=== PATIENT | male | born 1995 | race Native Hawaiian/Other Pacific Islander ===

== ENCOUNTER 2024-06-30 15:47 | Emergency (ER) | payer OTHER ==
[2024-06-30 15:54] VITALS: BP 120/74; O2SAT 99
--- NOTE | 2024-06-30 16:58 | ED Physician Documentation ---
History of Present Illness - Stated complaint Stated Complaint: MOUTH PAIN - Chief complaint Chief Complaint: General - History obtained from History obtained from: Patient - Additonal information Additional information: Patient is a 28-year-old male presenting to the emergency department with superior and inferior dry lips. He notes symptoms have been going on for multiple weeks. He notes occasional having weeping from the dryness of his lips. He notes no new climate changes no recent travel. He has tried Blistex on his lips with no significant relief. He has been taking antihistamine as he occasionally has pruritus to his lips. He denies any swelling no lesions associated with it no crusting or irritation of his ponce no appreciable vesicles.No fevers or chills. Patient notes this started slowly but has progressively worsened.He has not seen anyone else for the symptoms. PD PAST MEDICAL HISTORY - Past Medical History Past Medical History: No Cardiovascular: None Respiratory: None Neuro: None Endocrine/Autoimmune: None GI: None : None HEENT: None Psych: None Musculoskeletal: None Derm: Other Other Past Medical History: dermatitis - Past Surgical History Past Surgical History: Yes - Present Medications Home Medications: Ambulatory Orders Medication Instructions Recorded Confirmed No Known Home Medications 06/30/24 06/30/24 - Allergies Allergies/Adverse Reactions: Allergies Allergy/AdvReac Type Severity Reaction Status Date / Time No Known Drug Allergies Allergy Verified 06/30/24 15:54 - Social History Does the pt smoke?: No Smoking Status: Never smoker PD ED PE NORMAL - Vitals Vital signs reviewed: Yes - General General: Alert and oriented X 3 - HEENT HEENT: Atraumatic, Other (Lips appear dry and cracked no signs of lesions or vesicles no dried weeping no yellow crusting around the lips.) - Neck Neck: Supple, no meningeal sign - Cardiac Cardiac: RRR, No murmur, No gallop, No rub - Respiratory Respiratory: No respiratory distress, Clear bilaterally - Abdomen Abdomen: Normal bowel sounds - Derm Derm: Normal color, No rash - Neuro Neuro: Alert and oriented X 3 Eye Opening: Spontaneous Motor: Obeys Commands Verbal: Oriented GCS Score: 15 Results - Vitals Vitals: Vital Signs - 24 hr 06/30/24 15:49 Temperature 36.5 C Heart Rate 62 Respiratory 16 Rate Blood Pressure 120/74 O2 Saturation 99 Oxygen O2 Source Room air PD Medical Decision Making - ED course Complexity details: reviewed old records, reviewed results, re-evaluated patient ED course: Patient is a 28-year-old male presents with symptoms as listed above with past medical history as listed above.He notes symptoms have been going on for multiple weeks. He notes occasional having weeping from the dryness of his lips. He notes no new climate changes no recent travel. He has tried Blistex on his lips with no significant relief. Vitals are stable on arrival. Physical exam shows dry lips superiorly inferiorly no cracking bleeding no discoloration. No lesions on mucous membranes. Discussed with patient symptoms most likely secondary to dry cracked lips however given concerns for lesions patient will be tested for HSV. Instructed patient to try Vaseline and avoid any Chapstick's with lanolin as this causes repetitive dry lips. Patient instructed to follow-up in outpatient setting with PCP to ensure resolution of symptoms. Patient understands and is agreeable with this plan. Departure - Departure Disposition: 01 Home, Self Care Condition: Good Comments: Your workup here in the emergency department was reassuring apply Vaseline to your lips to prevent dryness and cracking. I will call you on results of herpes. Avoid using Chapstick's that have lanolin as this can cause recurrent dryness. Forms: PCP List Discharge Date/Time: 06/30/24 17:17
== END 2024-06-30 17:17 | disposition home or self-care (01) ==
LOC: ED 15:47
DX: K13.0 Diseases of lips (principal)
CPT/HCPCS: 87255; 99282; 99283